=== PATIENT | female | born 1965 | race American Indian/Alaskan Native ===

== ENCOUNTER 2017-05-23 21:47 | Inpatient (IN) | payer OTHER ==
[2017-05-23] MEDS ORDERED: ASPIRIN PO ONE (22:30)
[2017-05-23 22:58] LABS: Hematocrit 28.2 % (30.3-42.9); Mean Corpuscular HGB Conc 32 % (30-34); Platelet Count 347 K/mm3 (140-440); Red Blood Count 4.52 M/mm3 (3.65-5.03)
[2017-05-23 22:59] LABS: Mean Corpuscular Hemoglobin 20 pg (28-32); Mean Corpuscular Volume 62 fl (79-97); Red Cell Distribution Width 25.8 % (13.2-15.2)
[2017-05-23 23:19] LABS: BUN/Creatinine Ratio 22; Blood Urea Nitrogen 11 mg/dL (7-17); Calcium 9.5 mg/dL (8.4-10.2); Hemolysis Index 5
[2017-05-23 23:58] LABS: Anisocytosis 2+; Hypochromasia 3+; Platelet Estimate Consistent w Auto; Total Cells Counted 100
--- NOTE | 2017-05-24 00:51 | XRay Report ---
FINAL REPORT PROCEDURE: XR CHEST ROUTINE 2V TECHNIQUE: PA and lateral chest radiographs were obtained. CPT 91123 HISTORY: persistant cough COMPARISON: No prior studies are available for comparison. FINDINGS: Heart: Normal. Mediastinum/Vessels: Normal. Lungs/Pleural space: Normal. Bony thorax: No acute osseous abnormality. Other: IMPRESSION: Negative examination.
--- NOTE | 2017-05-24 09:40 | Emergency Department Report ---
ED Chest Pain HPI - General Chief Complaint: Chest Pain Stated Complaint: CHEST PAIN Time Seen by Provider: 05/24/17 09:06 Source: patient Mode of arrival: Ambulatory Limitations: No Limitations - History of Present Illness Initial Comments: This is a 52 year-old female presents to the emergency department from [place], where she is currently being treated for cocaine addiction. She has not used cocaine and 32 days. She comes here with complaint of a one-week history of a headache that appears to go in between her posterior and frontal regions of the head. She denies any vision changes, slurred speech or any neurological deficits. She also comes in because of the complaint of some pain to the left shoulder and some radiation towards the chest has been going on intermittently since last night. She tried some type of [id number]-[id number] analgesic with only mild temporary relief. Finally, she complains of a persistent two-month cough. It is mixed to dry and productive. She denies any shortness of breath. She is a tobacco smoker. She has a history of diabetes, hypertension. She does not currently have a primary care physician but has [employer] insurance. Severity scale (0 -10): 5 - Related Data Allergies Allergy/AdvReac Type Severity Reaction Status Date / Time No Known Allergies Allergy Unverified 05/23/17 22:30 Heart Score - HEART Score History: Slightly suspicious EKG: Normal Age: 45-65 Risk factors: > 3 risk factors or hx of atherosclerotic disease Troponin: < normal limit HEART Score: 3 - Critical Actions Critical Actions: 0-3 pts:0.9-1.7%risk of adverse cardiac event.Candidate for discharge ED Review of Systems ROS: Stated complaint: CHEST PAIN Other details as noted in HPI Comment: All other systems reviewed and negative Constitutional: denies: chills, fever Eyes: denies: eye pain, eye discharge, vision change ENT: denies: ear pain, throat pain Respiratory: denies: cough, shortness of breath, wheezing Cardiovascular: chest pain. denies: palpitations Gastrointestinal: denies: abdominal pain, nausea, diarrhea Genitourinary: denies: urgency, dysuria, discharge Musculoskeletal: arthralgia. denies: joint swelling Skin: denies: rash, lesions Neurological: headache. denies: weakness ED Past Medical Hx - Past Medical History Hx Hypertension: Yes Hx Diabetes: Yes - Surgical History Additional Surgical History: tubal - Social History Smoking Status: Current Every Day Smoker Substance Use Type: None ED Physical Exam - General Limitations: No Limitations - Other Other exam information: GENERAL: The patient is well-developed well-nourished. HENT: Normocephalic. Atraumatic. Patient has moist mucous membranes. EYES: Extraocular motions are intact. Pupils equal reactive to light bilaterally. No nystagmus. NECK: Supple. Trachea is midline. CHEST/LUNGS: Clear to auscultation. There is no respiratory distress noted. Chest pain is not reproducible to palpation. HEART/CARDIOVASCULAR: Regular. There is no tachycardia. There is no murmur. ABDOMEN: Abdomen is soft, nontender. Patient has normal bowel sounds. There is no abdominal distention. SKIN: Skin is warm and dry. NEURO: The patient is awake, alert, and oriented. The patient is cooperative. The patient has no focal neurologic deficits. The patient has normal speech. MUSCULOSKELETAL: There is no tenderness or deformity. There is no limitation range of motion. There is no evidence of acute injury. ED Course Vital Signs 05/23/17 05/24/17 05/24/17 22:25 04:43 09:28 Temperature 98.1 F Pulse Rate 80 84 87 Respiratory 18 16 17 Rate Blood Pressure 133/80 Blood Pressure 122/80 [Right] O2 Sat by Pulse 98 97 Oximetry 05/24/17 05/24/17 09:30 09:44 Temperature 98.5 F Pulse Rate 89 Respiratory 17 Rate Blood Pressure 154/90 Blood Pressure [Right] O2 Sat by Pulse 97 Oximetry KAYY score - Kayy Score Age > 65: (0) No Aspirin use within the Past 7 Days: (1) Yes 3 or more CAD Risk Factors: (1) Yes 2 or more Angina events in past 24 hrs: (1) Yes Known CAD with more than 50% Stenosis: (0) No Elevated Cardiac Markers: (0) No ST Deviation Greater than 0.5mm: (0) No KAYY Score: 3 ED Medical Decision Making - Lab Data Result diagrams: 05/23/17 22:35 05/23/17 22:35 - EKG Data -: EKG Interpreted by Or EKG shows normal: sinus rhythm, axis, intervals, QRS complexes (LVH), ST-T waves Rate: normal - EKG Data When compared to previous EKG there are: previous EKG unavailable Interpretation: LVH - Radiology Data Radiology results: report reviewed, image reviewed interpreted by me: Chest x-ray does not show any acute process. There are no pleural effusions, obvious pneumonia and there is no pneumothorax. CT of the head does not show any acute intracranial process including no ischemia, shift, mass, bleeding or skull fracture. - Medical Decision Making Patient presents with chest pain and headache. CT of the head is negative. EKG does not show any signs of ST elevation SC. Negative troponins 3. However the patient has 3-4 risk factors for coronary artery disease and continues to have these intermittent sharp pains to the chest and shoulder. She will be admitted to the hospital for further evaluation and treatment. I did contact [facility] and spoke to Dr. Nolan who gave us permission to keep patient at [facility] for her workup. Patient sent in for admission by the hospitalist and [facility] cardiology is aware. - Differential Diagnosis costochondritis, SC, GERD, pneumonia, brain bleed, tension headache Critical Care Time: No Critical care attestation.: If time is entered above; I have spent that time in minutes in the direct care of this critically ill patient, excluding procedure time. ED Disposition Clinical Impression: Chest pain Qualifiers: Chest pain type: unspecified Qualified Code(s): R07.9 - Chest pain, unspecified Hypertension Qualifiers: Hypertension type: essential hypertension Qualified Code(s): I10 - Essential ( primary) hypertension Headache Qualifiers: Headache type: unspecified Headache chronicity pattern: unspecified pattern Intractability: not intractable Qualified Code(s): R51 - Headache Disposition: -09 OP ADMIT IP TO THIS HOSP Is pt being admited?: Yes Condition: Stable Instructions: Chest Pain (ED), Hypertension (ED) Referrals: KLEVER CARDONA MD [Primary Care Provider] - 3-5 Days Time of Disposition: 10:43
--- NOTE | 2017-05-24 09:55 | Cat Scan Report ---
CT HEAD WITHOUT CONTRAST: HISTORY: Headache. TECHNIQUE: Sequential 2.5mm CT images. COMPARISON: none. FINDINGS: Cerebral Parenchyma: Within normal limits. Cerebellum: Within normal limits. Brainstem: Within normal limits. Ventricles: Normal. Sella: Normal. Extra-axial spaces: Normal. Basal Cisterns: Normal. Intracranial Hemorrhage: None. Midline Shift: None. Calvarium: Normal. Sinuses: Normal. Mastoid Air Cells: Normal. Visualized Orbits: Normal. IMPRESSION: Cranial CT scan within normal limits.
[2017-05-24] MEDS ORDERED: TORADOL IV ONE (10:09)
--- NOTE | 2017-05-24 11:27 | History and Physical Report ---
<TESSA MEDRANO - Last Filed: 05/24/17 11:43> History of Present Illness Date of examination: 05/24/17 Date of admission: 05/24/2017 Chief complaint: Chest pain History of present illness: Patient is a 52-year-old female with a past medical history of hypertension who presents to emergency department for complaining of left sided chest pain and headache. She is from [place], where she is currently being treated for cocaine addiction. She states that the pain began yesterday intermittent left side chest pain. The pain was located over her substerna somewhat in the left pigastric area. Patient described as, aching pain. The pain lasted for few hours and she states that pain was radiating to left arm and left shoulder. She tried some type of mrev-rhi-wbuemtv analgesic with only mild temporary relief; no exacerbating factors. The painful episodes did not increase in intensity or severity during this time. The patient denies chest pain at present time. She denies shortness of breath, and vomiting during these episodes of pain. Patient reported nausea and diaphoresis including feeling clammy. Also complaint of a posterior and frontal regions of headache for the past one-week. She denies any vision changes, slurred speech or any neurological deficits. She continued to have several episodes of chest pain throughout the night, she decided to come to the emergency department. Past History Past Medical History: diabetes, hypertension Past Surgical History: No surgical history Social history: smoking Family history: hypertension Medications and Allergies Allergies Allergy/AdvReac Type Severity Reaction Status Date / Time No Known Allergies Allergy Unverified 05/23/17 22:30 Active Meds: Active Medications Acetaminophen (Tylenol) 650 mg PO Q4H PRN PRN Reason: Pain MILD(1-3)/Fever >100.5/ALFARO Bisacodyl (Dulcolax) [address] QDAY PRN PRN Reason: Constipation unrelieved by MOM Enoxaparin Sodium (Lovenox) 40 mg SUB-Q QDAY JOSE Morphine Sulfate (Morphine) 2 mg IV Q4H PRN PRN Reason: Pain, Moderate (4-6) Review of Systems Constitutional: no weight gain, no fever, no chills Ears, nose, mouth and throat: no nose pain, no nasal congestion, no sinus pressure Breasts: no swelling, no mass Cardiovascular: no rapid/irregular heart beat, no edema, no syncope, no lightheadedness, no shortness of breath Respiratory: no hemoptysis, no shortness of breath, no dyspnea on exertion Gastrointestinal: no vomiting, no change in bowel habits, no hematemesis, no coffee ground emesis Genitourinary Female: no dyspareunia, no urgency, no stress incontinence Rectal: no incontinence, no bleeding Musculoskeletal: no low back pain, no shooting leg pain, no leg numbness/ tingling Integumentary: no rash, no pruritis, no redness Neurological: no parathesias, no numbness, no tingling, no seizures Psychiatric: no suicidal ideation, no disorientation Endocrine: no excessive sweating, no flushing, no weight change Hematologic/Lymphatic: no easy bruising, no easy bleeding Allergic/Immunologic: no urticaria, no allergic rhinitis, no wheezing Exam - Constitutional Vitals: Temp Pulse Resp BP Pulse Ox 98.5 F 89 17 154/90 97 05/24/17 09:44 05/24/17 09:30 05/24/17 09:30 05/24/17 09:30 05/24/17 09:30 General appearance: Present: no acute distress - EENT Eyes: Present: PERRL ENT: hearing intact - Neck Neck: Present: supple - Respiratory Respiratory: bilateral: CTA - Cardiovascular Rhythm: regular Heart Sounds: Present: S1 & S2 - Abdominal General gastrointestinal: Present: soft, non-tender Female genitourinary: Present: deferred - Rectal Rectal Exam: deferred - Integumentary Integumentary: Present: clear, warm, dry - Musculoskeletal Musculoskeletal: strength equal bilaterally - Psychiatric Psychiatric: appropriate mood/affect - Neurologic Neurologic: moves all extremities - Allied Health Allied health notes reviewed: nursing Results - Labs CBC & Chem 7: 05/23/17 22:35 05/23/17 22:35 Labs: Laboratory Last Values WBC 11.3 K/mm3 (4.5-11.0) H 05/23/17 22:35 RBC 4.52 M/mm3 (3.65-5.03) 05/23/17 22:35 Hgb 9.0 gm/dl (10.1-14.3) L 05/23/17 22:35 Hct 28.2 % (30.3-42.9) L 05/23/17 22:35 MCV 62 fl (79-97) L 05/23/17 22:35 MCH 20 pg (28-32) L 05/23/17 22:35 MCHC 32 % (30-34) 05/23/17 22:35 RDW 25.8 % (13.2-15.2) H 05/23/17 22:35 Plt Count 347 K/mm3 (140-440) 05/23/17 22:35 Add Manual Diff Complete 05/23/17 22:35 Total Counted 100 05/23/17 22:35 Seg Neuts % (Manual) 50.0 % (40.0-70.0) 05/23/17 22:35 Band Neutrophils % 0 % 05/23/17 22:35 Lymphocytes % (Manual) 35.0 % (13.4-35.0) 05/23/17 22:35 Reactive Lymphs % (Man) 0 % 05/23/17 22:35 Monocytes % (Manual) 10.0 % (0.0-7.3) H 05/23/17 22:35 Eosinophils % (Manual) 2.0 % (0.0-4.3) 05/23/17 22:35 Basophils % (Manual) 3.0 % (0.0-1.8) H 05/23/17 22:35 Metamyelocytes % 0 % 05/23/17 22:35 Myelocytes % 0 % 05/23/17 22:35 Promyelocytes % 0 % 05/23/17 22:35 Blast Cells % 0 % 05/23/17 22:35 Nucleated RBC % Not Reportable 05/23/17 22:35 Seg Neutrophils # Man 5.7 K/mm3 (1.8-7.7) 05/23/17 22:35 Band Neutrophils # 0.0 K/mm3 05/23/17 22:35 Lymphocytes # (Manual) 4.0 K/mm3 (1.2-5.4) 05/23/17 22:35 Abs React Lymphs (Man) 0.0 K/mm3 05/23/17 22:35 Monocytes # (Manual) 1.1 K/mm3 (0.0-0.8) H 05/23/17 22:35 Eosinophils # (Manual) 0.2 K/mm3 (0.0-0.4) 05/23/17 22:35 Basophils # (Manual) 0.3 K/mm3 (0.0-0.1) H 05/23/17 22:35 Metamyelocytes # 0.0 K/mm3 05/23/17 22:35 Myelocytes # 0.0 K/mm3 05/23/17 22:35 Promyelocytes # 0.0 K/mm3 05/23/17 22:35 Blast Cells # 0.0 K/mm3 05/23/17 22:35 WBC Morphology Not Reportable 05/23/17 22:35 Hypersegmented Neuts Not Reportable 05/23/17 22:35 Hyposegmented Neuts Not Reportable 05/23/17 22:35 Hypogranular Neuts Not Reportable 05/23/17 22:35 Smudge Cells Not Reportable 05/23/17 22:35 Toxic Granulation Not Reportable 05/23/17 22:35 Toxic Vacuolation Not Reportable 05/23/17 22:35 Dohle Bodies Not Reportable 05/23/17 22:35 Pelger-Huet Anomaly Not Reportable 05/23/17 22:35 Dulce Maria Rods Not Reportable 05/23/17 22:35 Platelet Estimate Consistent w auto 05/23/17 22:35 Clumped Platelets Not Reportable 05/23/17 22:35 Plt Clumps, EDTA Not Reportable 05/23/17 22:35 Large Platelets Not Reportable 05/23/17 22:35 Giant Platelets Not Reportable 05/23/17 22:35 Platelet Satelliting Not Reportable 05/23/17 22:35 Plt Morphology Comment Not Reportable 05/23/17 22:35 RBC Morphology Not Reportable 05/23/17 22:35 Dimorphic RBCs Not Reportable 05/23/17 22:35 Polychromasia Not Reportable 05/23/17 22:35 Hypochromasia 3+ 05/23/17 22:35 Poikilocytosis Not Reportable 05/23/17 22:35 Anisocytosis 2+ 05/23/17 22:35 Microcytosis 2+ 05/23/17 22:35 Macrocytosis Not Reportable 05/23/17 22:35 Spherocytes Not Reportable 05/23/17 22:35 Pappenheimer Bodies Not Reportable 05/23/17 22:35 Sickle Cells Not Reportable 05/23/17 22:35 Target Cells Not Reportable 05/23/17 22:35 Tear Drop Cells Not Reportable 05/23/17 22:35 Ovalocytes Not Reportable 05/23/17 22:35 Helmet Cells Not Reportable 05/23/17 22:35 [place] Bodies Not Reportable 05/23/17 22:35 [place] Rings Not Reportable 05/23/17 22:35 April Cells Not Reportable 05/23/17 22:35 Bite Cells Not Reportable 05/23/17 22:35 Crenated Cell Not Reportable 05/23/17 22:35 Elliptocytes Not Reportable 05/23/17 22:35 Acanthocytes (Spur) Not Reportable 05/23/17 22:35 Rouleaux Not Reportable 05/23/17 22:35 Hemoglobin C Crystals Not Reportable 05/23/17 22:35 Schistocytes Not Reportable 05/23/17 22:35 Malaria parasites Not Reportable 05/23/17 22:35 Juan Bodies Not Reportable 05/23/17 22:35 Hem Pathologist Commnt No 05/23/17 22:35 Sodium 143 mmol/L (137-145) 05/23/17 22:35 Potassium 4.0 mmol/L (3.6-5.0) 05/23/17 22:35 Chloride 102.0 mmol/L (98-107) 05/23/17 22:35 Carbon Dioxide 24 mmol/L (22-30) 05/23/17 22:35 Anion Gap 21 mmol/L 05/23/17 22:35 BUN 11 mg/dL (7-17) 05/23/17 22:35 Creatinine 0.5 mg/dL (0.7-1.2) L 05/23/17 22:35 Estimated GFR > 60 ml/min 05/23/17 22:35 BUN/Creatinine Ratio 22 % 05/23/17 22:35 Glucose 114 mg/dL (65-100) H 05/23/17 22:35 Calcium 9.5 mg/dL (8.4-10.2) 05/23/17 22:35 Troponin T < 0.010 ng/mL (0.00-0.029) 05/24/17 04:36 - Imaging and Cardiology Chest x-ray: image reviewed (unremarkable ) Assessment and Plan Assessment and plan: Patient is a 52-year-old female with a past medical history of hypertension who presents to emergency department for complaining of left sided chest pain and headache. She is from [place], where she is currently being treated for cocaine addiction. She states that the pain began yesterday intermittent left side chest pain. Chest Pain We will admit to telemetry floor. EKG normal sinus, no ST elevation or T-wave inversion. Negative cardiac enzyme X3 Start on aspirin Nitroglycerin when necessary Morphine ordered for pain Stress test ordered. Diabetes mellitus Accu-Chek before meals and at bedtime Sliding scale insulin/NovoLog ADA Consistent carbohydrate diet ADA Hypertension Continue on home antihypertensive medication IV hydralazine for SBP >160 Closely monitor blood pressure Tobacco abuse Smoking cessation counseling done. Patient strongly advised to quit. DVT prophylaxis Lovenox Advance Directives: Yes VTE prophylaxis?: Chemical Contraindication Mechanical VTE Prophylaxis: Treatment Not Indicated Plan of care discussed with patient/family: Yes <MELINDA NARAYANAN - Last Filed: 05/25/17 10:02> History of Present Illness Date of admission: 05/24/17 11:22 Medications and Allergies Active Meds: Active Medications Acetaminophen (Tylenol) 650 mg PO Q4H PRN PRN Reason: Pain MILD(1-3)/Fever >100.5/ALFARO Last Admin: 05/24/17 18:21 Dose: 650 mg Aspirin (Aspirin) 325 mg PO DAILY JOSE Bisacodyl (Dulcolax) [address] QDAY PRN PRN Reason: Constipation unrelieved by MOM Dextrose (D50w (25gm) Syringe) 50 ml IV PRN PRN PRN Reason: Hypoglycemia Enoxaparin Sodium (Lovenox) 40 mg SUB-Q QDAY JOSE Insulin Aspart (Novolog) 0 units SUB-Q AC JOSE PRN Reason: Protocol Last Admin: 05/24/17 18:43 Dose: Not Given Insulin Aspart (Novolog) 0 units SUB-Q QHS JOSE PRN Reason: Protocol Last Admin: 05/24/17 22:21 Dose: Not Given Lisinopril (Zestril) 20 mg PO QDAY JOSE Morphine Sulfate (Morphine) 2 mg IV Q4H PRN PRN Reason: Pain, Moderate (4-6) Nitroglycerin (Nitrostat) 0.4 mg SL .Q5MIN PRN PRN Reason: Chest Pain Exam - Constitutional Vitals: Temp Pulse Resp BP Pulse Ox 98.4 F 79 18 158/86 97 05/25/17 07:40 05/25/17 07:40 05/25/17 07:40 05/25/17 07:40 05/25/17 07:40 Results - Labs CBC & Chem 7: 05/25/17 03:44 05/25/17 03:44 Labs: Laboratory Last Values WBC 8.0 K/mm3 (4.5-11.0) 05/25/17 03:44 RBC 4.59 M/mm3 (3.65-5.03) 05/25/17 03:44 Hgb 9.2 gm/dl (10.1-14.3) L 05/25/17 03:44 Hct 28.7 % (30.3-42.9) L 05/25/17 03:44 MCV 63 fl (79-97) L 05/25/17 03:44 MCH 20 pg (28-32) L 05/25/17 03:44 MCHC 32 % (30-34) 05/25/17 03:44 RDW 25.3 % (13.2-15.2) H 05/25/17 03:44 Plt Count 318 K/mm3 (140-440) 05/25/17 03:44 Add Manual Diff Complete 05/25/17 03:44 Total Counted 100 05/25/17 03:44 Seg Neuts % (Manual) 43.0 % (40.0-70.0) 05/25/17 03:44 Band Neutrophils % 0 % 05/25/17 03:44 Lymphocytes % (Manual) 50.0 % (13.4-35.0) H 05/25/17 03:44 Reactive Lymphs % (Man) 0 % 05/25/17 03:44 Monocytes % (Manual) 6.0 % (0.0-7.3) 05/25/17 03:44 Eosinophils % (Manual) 0 % (0.0-4.3) 05/25/17 03:44 Basophils % (Manual) 1.0 % (0.0-1.8) 05/25/17 03:44 Metamyelocytes % 0 % 05/25/17 03:44 Myelocytes % 0 % 05/25/17 03:44 Promyelocytes % 0 % 05/25/17 03:44 Blast Cells % 0 % 05/25/17 03:44 Nucleated RBC % Not Reportable 05/25/17 03:44 Seg Neutrophils # Man 3.4 K/mm3 (1.8-7.7) 05/25/17 03:44 Band Neutrophils # 0.0 K/mm3 05/25/17 03:44 Lymphocytes # (Manual) 4.0 K/mm3 (1.2-5.4) 05/25/17 03:44 Abs React Lymphs (Man) 0.0 K/mm3 05/25/17 03:44 Monocytes # (Manual) 0.5 K/mm3 (0.0-0.8) 05/25/17 03:44 Eosinophils # (Manual) 0.0 K/mm3 (0.0-0.4) 05/25/17 03:44 Basophils # (Manual) 0.1 K/mm3 (0.0-0.1) 05/25/17 03:44 Metamyelocytes # 0.0 K/mm3 05/25/17 03:44 Myelocytes # 0.0 K/mm3 05/25/17 03:44 Promyelocytes # 0.0 K/mm3 05/25/17 03:44 Blast Cells # 0.0 K/mm3 05/25/17 03:44 WBC Morphology Not Reportable 05/25/17 03:44 Hypersegmented Neuts Not Reportable 05/25/17 03:44 Hyposegmented Neuts Not Reportable 05/25/17 03:44 Hypogranular Neuts Not Reportable 05/25/17 03:44 Smudge Cells Not Reportable 05/25/17 03:44 Toxic Granulation Not Reportable 05/25/17 03:44 Toxic Vacuolation Not Reportable 05/25/17 03:44 Dohle Bodies Not Reportable 05/25/17 03:44 Pelger-Huet Anomaly Not Reportable 05/25/17 03:44 Dulce Maria Rods Not Reportable 05/25/17 03:44 Platelet Estimate Appears normal 05/25/17 03:44 Clumped Platelets Not Reportable 05/25/17 03:44 Plt Clumps, EDTA Not Reportable 05/25/17 03:44 Large Platelets Not Reportable 05/25/17 03:44 Giant Platelets Not Reportable 05/25/17 03:44 Platelet Satelliting Not Reportable 05/25/17 03:44 Plt Morphology Comment Not Reportable 05/25/17 03:44 RBC Morphology Not Reportable 05/25/17 03:44 Dimorphic RBCs Yes 05/25/17 03:44 Polychromasia Not Reportable 05/25/17 03:44 Hypochromasia 2+ 05/25/17 03:44 Poikilocytosis Not Reportable 05/25/17 03:44 Anisocytosis 2+ 05/25/17 03:44 Microcytosis 2+ 05/25/17 03:44 Macrocytosis Not Reportable 05/25/17 03:44 Spherocytes Not Reportable 05/25/17 03:44 Pappenheimer Bodies Not Reportable 05/25/17 03:44 Sickle Cells Not Reportable 05/25/17 03:44 Target Cells Not Reportable 05/25/17 03:44 Tear Drop Cells Not Reportable 05/25/17 03:44 Ovalocytes Not Reportable 05/25/17 03:44 Helmet Cells Not Reportable 05/25/17 03:44 [place] Bodies Not Reportable 05/25/17 03:44 [place] Rings Not Reportable 05/25/17 03:44 April Cells Not Reportable 05/25/17 03:44 Bite Cells Not Reportable 05/25/17 03:44 Crenated Cell Not Reportable 05/25/17 03:44 Elliptocytes Not Reportable 05/25/17 03:44 Acanthocytes (Spur) Not Reportable 05/25/17 03:44 Rouleaux Not Reportable 05/25/17 03:44 Hemoglobin C Crystals Not Reportable 05/25/17 03:44 Schistocytes Not Reportable 05/25/17 03:44 Malaria parasites Not Reportable 05/25/17 03:44 Jaun Bodies Not Reportable 05/25/17 03:44 Hem Pathologist Commnt No 05/25/17 03:44 Sodium 142 mmol/L (137-145) 05/25/17 03:44 Potassium 4.5 mmol/L (3.6-5.0) 05/25/17 03:44 Chloride 102.0 mmol/L (98-107) 05/25/17 03:44 Carbon Dioxide 26 mmol/L (22-30) 05/25/17 03:44 Anion Gap 19 mmol/L 05/25/17 03:44 BUN 12 mg/dL (7-17) 05/25/17 03:44 Creatinine 0.4 mg/dL (0.7-1.2) L 05/25/17 03:44 Estimated GFR > 60 ml/min 05/25/17 03:44 BUN/Creatinine Ratio 30 % 05/25/17 03:44 Glucose 112 mg/dL (65-100) H 05/25/17 03:44 POC Glucose 108 (70-105) H 05/24/17 21:44 Calcium 9.5 mg/dL (8.4-10.2) 05/25/17 03:44 Troponin T < 0.010 ng/mL (0.00-0.029) 05/24/17 04:36 Assessment and Plan Assessment and plan: I saw and evaluated the patient. I agree with the findings and the plan of care as documented in the Nurse Practitioner's H/P note.
[2017-05-24] MEDS ORDERED: NITROSTAT SL PRN (12:00)
[2017-05-24] MEDS ORDERED: MORPHINE IV PRN (12:00)
[2017-05-24] MEDS ORDERED: TYLENOL PO PRN (12:00)
[2017-05-24] MEDS ORDERED: DULCOLAX PR PRN (12:00)
[2017-05-24] MEDS ORDERED: D50W (25GM) Syringe IV PRN (13:27)
--- NOTE | 2017-05-24 13:37 | Consultation ---
History of Present Illness Consult date: 05/24/17 Requesting physician: MELISSA MELENDEZ Consult reason: chest pain History of present illness: The pt is a 52 YO female with a past medical history significant for HTN, DM, cocaine use, tobacco use. She is previously unknown to our practice. She presented to the emergency department from [place], where she is currently being treated for cocaine addiction. She has not used cocaine and 32 days. She presented with c/o headache for 1 week [employer] and left arm pain, left shoulder pain and chest pain since last night. She describes the arm, shoulder and chest pain as a nonexertional intermittent aching pain which has no clear aggravating or alleviating factors. The pain radiates into the left side of her chest. She denies any SOB, palpitations, n/v, diaphoresis, dizziness or syncope. She denies any prior cardiac issues or cardiac evaluation. Past History Past Medical History: diabetes, hypertension Past Surgical History: No surgical history Social history: smoking, other (h/o cocaine abuse) Family history: hypertension Medications and Allergies Allergies Allergy/AdvReac Type Severity Reaction Status Date / Time No Known Allergies Allergy Unverified 05/23/17 22:30 Home Medications Medication Instructions Recorded Confirmed Last Taken Type Benzonatate [Tessalon Perle] 100 mg PO TID 05/24/17 05/24/17 05/23/17 History Ferrous Sulfate [Iron] 325 mg PO QDAY 05/24/17 05/24/17 Unknown History Lisinopril [Zestril] 20 mg PO QAM 05/24/17 05/24/17 05/23/17 History Sertraline [Zoloft] 25 mg PO QAM 05/24/17 05/24/17 05/23/17 History Active Meds: Active Medications Acetaminophen (Tylenol) 650 mg PO Q4H PRN PRN Reason: Pain MILD(1-3)/Fever >100.5/ALFARO Aspirin (Aspirin) 325 mg PO DAILY JOSE Bisacodyl (Dulcolax) 10 mg NE QDAY PRN PRN Reason: Constipation unrelieved by MOM Dextrose (D50w (25gm) Syringe) 50 ml IV PRN PRN PRN Reason: Hypoglycemia Enoxaparin Sodium (Lovenox) 40 mg SUB-Q QDAY JOSE Insulin Aspart (Novolog) 0 units SUB-Q AC JOSE PRN Reason: Protocol Insulin Aspart (Novolog) 0 units SUB-Q QHS JOSE PRN Reason: Protocol Morphine Sulfate (Morphine) 2 mg IV Q4H PRN PRN Reason: Pain, Moderate (4-6) Nitroglycerin (Nitrostat) 0.4 mg SL .Q5MIN PRN PRN Reason: Chest Pain Review of Systems Constitutional: no weight loss, no weight gain, no fever, no chills, no sweats Ears, nose, mouth and throat: no ear pain, no nose pain, no sinus pressure, no sinus pain Cardiovascular: chest pain, no orthopnea, no palpitations, no rapid/irregular heart beat, no edema, no syncope, no lightheadedness, no shortness of breath, no dyspnea on exertion, no paroxysmal nocturnal dyspnea Respiratory: no cough, no shortness of breath, no dyspnea on exertion, no congestion, no wheezing, no pain on inspiration Gastrointestinal: no abdominal pain, no nausea, no vomiting, no diarrhea, no constipation, no change in bowel habits Genitourinary Female: no pelvic pain, no flank pain, no dysuria, no urinary frequency, no urgency Musculoskeletal: other (LUE aching, left shoulder aching), no neck stiffness, no neck pain Integumentary: no rash, no pruritis, no redness, no sores, no wounds Neurological: headaches, no head injury, no weakness, no parathesias, no numbness, no tingling, no seizures, no syncope Psychiatric: no anxiety Endocrine: no cold intolerance, no heat intolerance Hematologic/Lymphatic: no easy bruising, no easy bleeding, no lymphadenopathy Allergic/Immunologic: no urticaria, no wheezing, no persistent infections Physical Examination Vital Signs Temp Pulse Resp BP 98.1 F 80 18 133/80 05/23/17 22:25 05/23/17 22:25 05/23/17 22:25 05/23/17 22:25 General appearance: no acute distress HEENT: Positive: PERRL, Normocephaly, Mucus Membranes Moist Neck: Positive: neck supple, trachea midline Cardiac: Positive: Reg Rate and Rhythm, S1/S2 Lungs: Positive: clear to auscultation Neuro: Positive: Grossly Intact, Cranial Nerve 2-12 Intact Abdomen: Positive: Soft. Negative: Tender Skin: Positive: Clear. Negative: Rash, Wound Musculoskeletal: No Fluid Collection, No Pain, Normal Range of Motion Extremities: Absent: edema Results 05/23/17 22:35 05/23/17 22:35 CBC 05/23/17 Range/Units 22:35 WBC 11.3 H (4.5-11.0) K/mm3 RBC 4.52 (3.65-5.03) M/mm3 Hgb 9.0 L (10.1-14.3) gm/dl Hct 28.2 L (30.3-42.9) % Plt Count 347 (140-440) K/mm3 Comprehensive Metabolic Panel 05/23/17 Range/Units 22:35 Sodium 143 (137-145) mmol/L Potassium 4.0 (3.6-5.0) mmol/L Chloride 102.0 (98-107) mmol/L Carbon Dioxide 24 (22-30) mmol/L BUN 11 (7-17) mg/dL Creatinine 0.5 L (0.7-1.2) mg/dL Glucose 114 H (65-100) mg/dL Calcium 9.5 (8.4-10.2) mg/dL - Imaging and Cardiology EKG: report reviewed, image reviewed EKG interpretations - Telemetry EKG Rhythm: Sinus Rhythm - EKG Sinus rhythms and dysrhythmias: sinus rhythm Assessment and Plan Assessment: Chest pain, atypical - AMI ruled out HTN Headache - head CT with NAF DM Anemia Leukocytosis Tobacco use / cocaine abuse - cessation encouraged Plan: Plan for lexiscan MPI stress test in AM. NPO after MN. Assessment and plan reviewed with pt at bedside. The patient has been seen in conjunction with Dr. Escalante who agrees with the assessment and plan of care.
[2017-05-24] MEDS: NOVOLOG SUB-Q SCH (18:43)
[2017-05-24] MEDS ORDERED: NOVOLOG SUB-Q SCH (22:00)
[2017-05-25 04:21] LABS: Hematocrit 28.7 % (30.3-42.9); Hemoglobin 9.2 gm/dl (10.1-14.3); Mean Corpuscular HGB Conc 32 % (30-34); Platelet Count 318 K/mm3 (140-440); Red Blood Count 4.59 M/mm3 (3.65-5.03)
[2017-05-25 04:26] LABS: Mean Corpuscular Hemoglobin 20 pg (28-32); Mean Corpuscular Volume 63 fl (79-97); Red Cell Distribution Width 25.3 % (13.2-15.2)
[2017-05-25 04:33] LABS: BUN/Creatinine Ratio 30; Blood Urea Nitrogen 12 mg/dL (7-17); Calcium 9.5 mg/dL (8.4-10.2); Hemolysis Index 4
[2017-05-25 05:05] LABS: Anisocytosis 2+; Eosinophils % (Manual) 0 % (0.0-4.3); Total Cells Counted 100
[2017-05-25 05:06] LABS: Dimorphic RBC Yes; Hypochromasia 2+
[2017-05-25] MEDS: NOVOLOG SUB-Q SCH (07:30)
[2017-05-25] MEDS ORDERED: LEXISCAN IV ONE ×2 (08:06→08:10)
[2017-05-25] MEDS ORDERED: ZESTRIL PO SCH (10:00)
[2017-05-25] MEDS ORDERED: ASPIRIN PO SCH (10:00)
[2017-05-25] MEDS ORDERED: LOVENOX SUB-Q SCH (10:00)
--- NOTE | 2017-05-25 11:59 | Progress Note ---
Assessment and Plan Chest pain, atypical - AMI ruled out HTN Headache - head CT with NAF DM Anemia Leukocytosis Tobacco use / cocaine abuse - cessation encouraged Patient had a nuclear stress test today. This is noted to be negative for ischemia. Cardiac status appears to be stable. - Patient Problems (1) Chest pain Current Visit: Yes Status: Acute Qualifiers: Chest pain type: unspecified Qualified Code(s): R07.9 - Chest pain, unspecified (2) Hypertension Current Visit: Yes Status: Acute Qualifiers: Hypertension type: essential hypertension Qualified Code(s): I10 - Essential (primary) hypertension Subjective Date of service: 05/25/17 Interval history: Patient is doing well today. No significant chest pain difficulty in breathing or palpitations. She complains about mild headache. She just completed her stress test. Objective Vital Signs Temp Pulse Resp BP Pulse Ox 05/25/17 10:26 103 H 117/74 05/25/17 09:57 103 H 131/78 05/25/17 09:56 104 H 130/76 05/25/17 09:54 113 H 121/83 05/25/17 09:53 119 H 121/80 05/25/17 09:02 76 142/95 05/25/17 07:40 98.4 F 79 18 158/86 97 05/25/17 05:18 98.4 F 65 18 129/72 99 05/24/17 23:19 98.2 F 78 18 139/83 95 05/24/17 19:23 98.1 F 77 18 137/87 100 05/24/17 18:21 20 05/24/17 17:48 98.5 F 18 162/90 05/24/17 16:30 84 05/24/17 15:00 70 17 134/77 100 05/24/17 14:30 89 17 120/81 100 05/24/17 14:00 76 13 120/81 99 05/24/17 13:30 78 15 152/100 100 05/24/17 13:00 75 15 114/80 100 05/24/17 12:30 86 15 152/100 99 05/24/17 12:00 71 11 L 152/100 100 - Physical Examination HEENT: Positive: PERRL, Normocephaly, Mucus Membranes Moist Neck: Positive: neck supple, trachea midline Cardiac: Positive: Regular Rate Lungs: Positive: clear to auscultation Neuro: Positive: Grossly Intact, Cranial Nerve 2-12 Intact Abdomen: Positive: Soft. Negative: Tender Skin: Positive: Clear. Negative: Rash, Wound Musculoskeletal: No Fluid Collection, No Pain, Normal Range of Motion Extremities: Absent: edema - Labs and Meds CBC 05/25/17 Range/Units 03:44 WBC 8.0 (4.5-11.0) K/mm3 RBC 4.59 (3.65-5.03) M/mm3 Hgb 9.2 L (10.1-14.3) gm/dl Hct 28.7 L (30.3-42.9) % Plt Count 318 (140-440) K/mm3 Comprehensive Metabolic Panel 05/25/17 Range/Units 03:44 Sodium 142 (137-145) mmol/L Potassium 4.5 (3.6-5.0) mmol/L Chloride 102.0 (98-107) mmol/L Carbon Dioxide 26 (22-30) mmol/L BUN 12 (7-17) mg/dL Creatinine 0.4 L (0.7-1.2) mg/dL Glucose 112 H (65-100) mg/dL Calcium 9.5 (8.4-10.2) mg/dL - Imaging and Cardiology EKG: report reviewed, image reviewed - EKG Sinus rhythms and dysrhythmias: sinus rhythm
--- NOTE | 2017-05-25 12:43 | Discharge Summary ---
Providers - Providers Date of Admission: 05/24/17 11:22 Date of discharge: 05/26/17 Attending physician: MELINDA NARAYANAN MD 05/24/17 10:08 Consult to Physician [CONS] Routine Consulting Provider: MAEGAN CORREIA Reason For Exam: Chest pain Place consult to:: [facility] Notified:: y Was contact made?: Yes If yes, spoke with:: Alicia hook Primary care physician: KLEVRE CARDONA Hospitalization Reason for admission: chest pain, Hypertension Condition: Stable Pertinent studies: ECG Normal sinus rhythm, no ST elevation Stress test negative for ischemia Hospital course: Patient is a 52-year-old female with a past medical history of hypertension who presents to emergency department for complaining of left sided chest pain and headache. She is from [place], where she is currently being treated for cocaine addiction. She states that the pain began yesterday intermittent left side chest pain. The pain was located over her substernal somewhat in the left pigastric area. Patient described as, aching pain. The pain lasted for few hours and she states that pain was radiating to left arm and left shoulder. She tried some type of [id number] analgesic with only mild temporary relief; no exacerbating factors. She denies shortness of breath, and vomiting during these episodes of pain. Patient reported nausea and diaphoresis including feeling clammy. Also complaint of a posterior and frontal regions of headache for the past one-week. She denies any vision changes, slurred speech or any neurological deficits. She continued to have several episodes of chest pain throughout the night, she decided to come to the emergency department. Patient was admitted to the floor and cardiology was consulted and all workup were negative for ACS. Patient will go back to [facility] and continue her rehab treatment. patient was hemodynamically stable at the time of discharge. Patient's questions concerns were addressed at the bedside. Disposition: - TO HOME OR SELFCARE Time spent for discharge: 31 minutes - Discharge Diagnoses (1) Chest pain Status: Acute Qualifiers: Chest pain type: unspecified Qualified Code(s): R07.9 - Chest pain, unspecified (2) Headache Status: Acute Qualifiers: Headache type: unspecified Headache chronicity pattern: unspecified pattern Intractability: not intractable Qualified Code(s): R51 - Headache (3) Hypertension Status: Acute Qualifiers: Hypertension type: essential hypertension Qualified Code(s): I10 - Essential (primary) hypertension Core Measure Documentation - Palliative Care Palliative Care/ Comfort Measures: Not Applicable - Core Measures Any of the following diagnoses?: none Exam - Constitutional Vitals: Temp Pulse Resp BP Pulse Ox 98.4 F 103 H 18 117/74 97 05/25/17 07:40 05/25/17 10:26 05/25/17 07:40 05/25/17 10:26 05/25/17 07:40 General appearance: Present: no acute distress - EENT Eyes: Present: PERRL, EOM intact ENT: clear oral mucosa - Neck Neck: Present: supple, normal ROM - Respiratory Respiratory effort: normal Respiratory: negative: CTA (and percussion) - Cardiovascular Rhythm: regular Heart Sounds: Present: S1 & S2 - Extremities Extremities: no ischemia, No edema, Full ROM Peripheral Pulses: within normal limits - Abdominal General gastrointestinal: Present: soft, non-tender, non-distended - Integumentary Integumentary: Present: clear, warm, dry - Musculoskeletal Musculoskeletal: strength equal bilaterally - Psychiatric Psychiatric: appropriate mood/affect - Neurologic Neurologic: CNII-XII intact Plan Activity: no restrictions Weight Bearing Status: Full Weight Bearing Diet: low cholesterol, low salt Follow up with: KLEVER CARDONA MD [Primary Care Provider] - 3-5 Days
[2017-05-25 12:52] VITALS: BP 172/96
--- NOTE | 2017-05-25 14:12 | Treadmill Report ---
This is a 52-year-old female brought to the nuclear lab and the patient underwent nuclear stress test with administration of Lexiscan. The patient tolerated the procedure well. Post-stress images reveal fairly homogeneous distribution of the isotope with no significant reversibility during rest. Accompanying gated study shows good systolic function with a calculated ejection fraction of 56%. IMPRESSION: 1. Nuclear stress test is negative for significant ischemia. 2. Good systolic function with no wall motion abnormalities. Calculated ejection fraction is noted to be 56. JOB# [id number] ODILIA/ADALID GILMORE
== END 2017-05-25 16:56 | disposition home or self-care (01) | DRG 313 ==
LOC: ED 21:47 → 4A 05-24 11:22
PROVIDERS: ADMIT Internal Medicine; ATTEND Internal Medicine
DX: R07.89 Other chest pain (principal); E11.9 Type 2 diabetes mellitus without complications; R51 Headache; I10 Essential (primary) hypertension; F17.200 Nicotine dependence, unspecified, uncomplicated; M25.512 Pain in left shoulder; D64.9 Anemia, unspecified; D72.829 Elevated white blood cell count, unspecified; F14.10 Cocaine abuse, uncomplicated; Z82.49 Family history of ischemic heart disease and other diseases of the circulatory system; Z71.6 Tobacco abuse counseling
CPT/HCPCS: 36415; 70450; 71020; 78452; 80048; 82962; 84484; 85007; 85025; 93005; 93010; 93017; 96374; 99285; 99406; A9502; J1650; J1885; J2270; J2785